=== PATIENT | male | born 1945 | race Caucasian/White ===

== ENCOUNTER 2024-05-25 09:28 | Outpatient (CLI) | payer OTHER, SELFPAY ==
--- NOTE | 2024-05-25 09:32 | USCV_ITS ---
Carlos Alberto Harvey Age: 78 Gender: M : 1945 Exam Date: 05/25/2024 09:39 Ordering Phys: Leah Renteria MD Technologist: Pete Land Exam Location: [facility] – [place] Indication: claudication RIGHT LEFT Brachial 140.00 mmHg Brachial mmHg Pressure (mmHg) Waveform Pressure (mmHg) Waveform 86.00 SOFTWARE DEVELOPMENT INTERN 163.00 93.00 DPA 137.00 0.66 Ankle/Brachial Index 1.16 74.00 Pre-Exercise Toe Pressure 108.00 0.53 Pre-Exercise Toe/Brachial Index 0.77 FINDINGS Resting MAINOR of 0.66 on the right side and 1.16 on the left Resting TBI was 0.53 on the right and 0.77 on the left side CONCLUSIONS 1. Abnormal resting MAINOR and TBI on the right side suggesting moderate peripheral arterial disease 2. Normal resting MAINOR and TBI on the left side, suggesting no significant arterial obstruction Dr Era De La O MD [facility] (Electronically Signed) Final Date: 27 May 2024 18:26 S
== END 2024-05-25 09:29 | disposition home or self-care (01) ==
PROVIDERS: PCP Emergency Medicine Emergency Medical Services; Visit Provider Family Medicine
DX: I70.211 Atherosclerosis of native arteries of extremities with intermittent claudication, right leg (principal)
CPT/HCPCS: 93922